=== PATIENT | female | born 1990 | race Caucasian/White ===

== ENCOUNTER 2022-12-06 21:40 | Emergency (ER) | payer BC, SELFPAY ==
--- NOTE | ~2022-12-06 | CT_ITS ---
EXAMINATION: CT abdomen wo con DATE: 12/06/2022 22:57 INDICATION: Possible foreign body in the trachea S/P choking episode. TECHNIQUE: Computed tomography (CT) of the abdomen was performed without intravenous contrast. [employer]oma ankit exposure control and iterative reconstruction technique were employed. The dose-length product wa s 403.20 mGy-cm. COMPARISON: None. FINDINGS: Liver: Normal. Biliary/Gallbladder: Gallbladder is normal. No bile duct dilation. Pancreas: No mass or duct dilation. Spleen: Absent. Splenules in the left upper quadrant. Adrenals:No mass. Kidneys: Bilateral nonobstructing calculi No mass, obstructing stone, or hydronephrosis. GI tract: No small or large bowel dilation. Normal appendix. Mesentery/Peritoneum: No ascites, mass, or free air. Retroperitoneum: No mass. Pelvis: Pelvic organs are within normal limits. Soft Tissues: Umbilical hernia containing loops of nondilated small bowel. Bones: No acute osseous finding. Multiple old left lateral rib fractures. Mild chronic appearing com pression deformities in multiple lower thoracic vertebral bodies. IMPRESSION: No acute finding in the abdomen. Specifically, no foreign body is detected. Reviewed, dictated and finalized at location K.
--- NOTE | ~2022-12-06 | CT_ITS ---
EXAMINATION: CT soft tissue neck chest wo DATE: 12/06/2022 22:57 INDICATION: Possible foreign body status post choking episode. TECHNIQUE: Computed tomography (CT) of the neck and chest was performed without intravenous contrast. Automated exposure control and iterative reconstruction technique were employed. The dose-length pro duct was 858.99 mGy-cm. COMPARISON: None FINDINGS: SOFT TISSUE NECK: The thyroid gland is unremarkable. The submandibular and parotid glands are symmetric. Enlarged u pper cervical anterior chain nodes. The superior mediastinum is unremarkable. The airway is unrema rkable. Parapharyngeal and pre-glottic fat planes are preserved. The orbits are unremarkable. Vi sualized sinuses and mastoid air cells are well aerated. No acute osseous finding in the neck. CHEST: Thoracic aorta: No significant dilation or calcification. Lung parenchyma and airways: Lungs and airways are clear. Thoracic inlet, axillae and chest wall: No thyroid or soft tissue mass. No axillary lymphadenopathy. Mediastinum: No mass or lymphadenopathy. Heart and pericardium: Normal heart size. No pericardial effusion. Coronary artery calcifications: Absent. Pleura: No effusion or mass. Left lateral and inferior pleural scarring. Left diaphragmatic scarring and small fat-containing hernia. Thoracic bones: Multiple old left lateral rib fractures. IMPRESSION: 1. Bilateral upper anterior cervical chain lymphadenopathy. 2. No foreign body detected. Reviewed, dictated and finalized at location K.
--- NOTE | 2022-12-06 21:49 | ED.GENADULT ---
HPI - General Adult General Chief complaint: Unspecified Stated complaint: SOB Source: patient, EMS and RN notes reviewed Mode of arrival: ambulatory Limitations: no limitations History of Present Illness HPI narrative: patient states that she choked on a piece of carroll about 3-1/2 hours earlier in the day. She had called EMS but then signed a refusal. She still feels like something stuck in her neck. She is swallowing her secretions okay she is able to swallow food but has a feeling of something in her chest and it feels tight. She was on her way here when she was driving became so anxious that she felt like she was short of breath she called an ambulance. She is not having any difficulty breathing on arrival. She is not having any other chest pain. She has no nausea vomiting. Onset (ago): hour(s) (3.5) Location: neck Radiation: non-radiation Severity: moderate Quality: dull and constant Pain Consistency: constant Relieving factors: none Exacerbating factors: other ( swallowing) Associated symptoms: denies other symptoms Related Data Home Medications Medication Instructions Recorded Confirmed Adderall 10 mg PO DAILY 12/06/22 12/06/22 Suboxone 8 mg PO DAILY 12/06/22 12/06/22 bupropion HCl 40 mg PO DAILY 12/06/22 12/06/22 Allergies Allergy/AdvReac Type Severity Reaction Status Date / Time codeine Allergy Hives Verified 12/06/22 21:49 Review of Systems Review of Systems: All systems reviewed & are unremarkable except as noted in HPI and below PMFSH Past Medical History Medical History (Updated 12/07/22 @ 00:00 by Sobeida Lowe) ADHD Anxiety and depression Surgical History Surgical History (Updated 12/06/22 @ 22:34 by Jose Luis Adams MD) No pertinent past surgical history Exam Const: General: cooperative, healthy appearing, no acute distress and alert Nutritional Appearance: well nourished and overweight Orientation/consciousness: patient oriented x3 Limitations: no limitations HENMT: Head: normal to inspection Ears: hearing grossly normal bilaterally and external ears normal Face/Nose/Sinus: Normal external nose present Face and sinus: normal facial exam Mouth: Yes Normal oral and palatal mucosa present and Yes moist mucous membranes Eyes: General: appearance normal, both eyes and all related structures Pupils: Equal, round and reactive pupils present EOM: EOMs intact bilaterally Neck: Neck: normal visual inspection and full ROM Resp: Effort & Inspection: normal respiratory effort Auscultation: clear to auscultation bilaterally Cardio: Rate: regular rate Rhythm: regular rhythm GI: GI Palp: Yes Soft to palpation and No Tenderness to palpation present (GI) Auscultation: normal bowel sounds Back/Spine/Pelvis: Cervical Spine: cervical ROM normal Thoracic/Lumbar Spine: thoraco-lumbar ROM normal Skin: General skin exam: normal color, elasticity normal and turgor normal Rashes: no rashes Neuro: General: patient oriented x3, gait normal and moves all extremities Cranial nerves: Yes CN's II-XII intact bilaterally Cognition (Neuro): normal cognition Speech: normal speech Motor exam (neuro): 5/5 motor strength present throughout Extrem: General: normal to inspection and no clubbing, cyanosis or edema Psych: Appearance: grossly normal and well kempt Mental Status: mental status grossly normal Speech and movement: Normal speech and movement present Affect: Anxious affect present Attitude: cooperative Course Vital Signs Vital signs: Vital Signs Pulse Rate 93 12/06/22 21:50 Respiratory Rate 18 12/06/22 21:50 Blood Pressure 95/77 L 12/06/22 21:50 Pulse Oximetry 98 12/06/22 21:50 Oxygen Delivery Room Air 12/06/22 21:50 Temperature 37.3 C 12/06/22 21:53 Pulse Rate 93 12/06/22 22:20 Respiratory Rate 18 12/06/22 22:20 Blood Pressure 121/87 12/06/22 22:20 Pulse Oximetry 96 12/06/22 22:20 Oxygen Delivery Room Air 12/06/22 21:53 Medi
[2022-12-06 21:50] VITALS: BP 95/77; PULSE 93; RESP 18; O2SAT 98
[2022-12-06 21:53] VITALS: BP 95/77; PULSE 98; RESP 18; TEMP 37.3; O2SAT 100
[2022-12-06 22:13] LABS: Basophils Absolute Auto 0.08 K/mm3 (0.00-0.10); Basophils Percent Auto 0.6 % (0.0-1.0); Eosinophils Absolute Auto 0.38 K/mm3 (0.02-0.50); Eosinophils Percent Auto 2.9 % (1.0-6.0); Hematocrit 36.9 % (35.0-49.0); Hemoglobin 12.3 g/dL (12.0-15.0); Immature Granulocyte Absolute 0.05 K/mm3 (0.00-0.00); Immature Granulocyte Percent A 0.4 % (0.0-0.0); Lymphocytes Absolute Auto 2.96 K/mm3 (1.10-4.50); Lymphocytes Percent Auto 22.3 % (18.0-42.0); Mean Corpuscular HGB Conc 33.3 g/dL (32.0-36.0); Mean Corpuscular Hemoglobin 31.5 pg (27.0-31.0); Mean Corpuscular Volume 94.6 fL (78.0-102.0); Mean Platelet Volume 9.7 fl (9.2-11.8); Monocytes Absolute Auto 1.09 K/mm3 (0.10-0.90); Monocytes Percent Auto 8.2 % (2.0-11.0); Neutrophils Absolute Auto 8.7 K/mm3 (1.7-7.2); Neutrophils Percent Auto 65.6 % (50.0-70.0); Platelet Count Result 381 K/mm3 (150-420); Red Cell Distribution Width 13.4 % (11.6-14.4); White Blood Count 13.3 K/mm3 (4.8-10.8)
[2022-12-06 22:20] VITALS: BP 121/87; PULSE 93; RESP 18; O2SAT 96
[2022-12-06 22:31] LABS: D Dimer 0.34 mg/L (0.19-0.50)
[2022-12-06 22:43] LABS: Alanine Aminotransferase 18 U/L (14-59); Albumin Level 4.9 g/dL (3.4-5.0); Alkaline Phosphatase 64 U/L (46-116); Anion Gap 10 mmol/L (8-16); Aspartate Amino Transferase 15 U/L (15-37); Bilirubin,Total 0.2 mg/dL (0.00-1.00); Blood Urea Nitrogen 17 mg/dL (7-18); CRP < 0.5 mg/dL (0.0-0.9); Calcium 8.6 mg/dL (8.5-10.1); Carbon Dioxide 25 mmol/L (21-32); Chloride 104 mmol/L (98-108); Estimated CRCL calculation 95 ml/min; Estimated Glomerular Filt Rate > 60; Glucose 96 mg/dL (70-99); Osmolality Calculated 289 mOsm/kg (285-295); Potassium 3.9 mmol/L (3.5-5.1); Sodium 139 mmol/L (136-145); Total Protein 7.4 g/dL (6.4-8.2); Troponin I < 4.0 ng/L (0.00-60.4)
[2022-12-06] MEDS: CLINDAMYCIN HCL 150 MG CAP 300 MG PO (23:17)
== END 2022-12-06 23:20 | disposition home or self-care (01) ==
PROVIDERS: Emergency Provider Emergency Medicine; PCP Internal Medicine
DX: T18.128A Food in esophagus causing other injury, initial encounter (principal); F90.9 Attention-deficit hyperactivity disorder, unspecified type; F41.8 Other specified anxiety disorders
CPT/HCPCS: 36415; 70490; 71250; 74150; 80053; 83735; 84484; 85025; 85380; 86140; 99284; A9270